=== PATIENT | male | born 1960 | race Caucasian/White ===

== ENCOUNTER 2016-10-02 10:50 | Emergency (ER) | payer MEDICAID ==
[2016-10-02 11:11] VITALS: BMI 29.8
[2016-10-02 11:13] VITALS: RESP 18
--- NOTE | 2016-10-02 12:05 | C.PDOC ---
History Of Present Illness 56 y/o male presents to the ED with complaints of acute on chronic mid lower back pain. Pt taking unknown medication at home for the pain without improvement. Denies applying heat/ice. No recent trauma or strain. Denies weakness, numbness, incontinence or any other complaints. Time Seen by Provider: 10/02/16 11:59 Chief Complaint (Nursing): Back Pain History Per: Patient History/Exam Limitations: no limitations Onset/Duration Of Symptoms: Days Current Symptoms Are (Timing): Still Present Quality Of Discomfort: "Pain" Severity: Moderate Previous Symptoms: Back Pain, Chronic Pain Associated Symptoms: None Recent travel outside of the [place]: No Past Medical History Reviewed: Historical Data, Nursing Documentation, Vital Signs Vital Signs: Last Vital Signs Temp 97.3 F L 10/02/16 13:08 Pulse 71 10/02/16 13:08 Resp 18 10/02/16 13:08 BP 114/71 10/02/16 13:08 Pulse Ox 99 10/02/16 13:32 - Medical History PMH: HTN Family History: States: Unknown Family Hx - Social History Hx Alcohol Use: No Hx Substance Use: No - Immunization History Hx Tetanus Toxoid Vaccination: No Hx Influenza Vaccination: No Hx Pneumococcal Vaccination: No Review Of Systems Except As Marked, All Systems Reviewed And Found Negative. Genitourinary: Negative for: Incontinence Musculoskeletal: Positive for: Back Pain Neurological: Negative for: Weakness, Numbness Physical Exam - Physical Exam Appears: Non-toxic, No Acute Distress, Other (obese) Skin: Warm, Dry, No Rash Head: Atraumatic, Normacephalic Neck: Normal, Normal ROM, Supple Chest: Symmetrical Cardiovascular: Rhythm Regular, No Murmur Respiratory: Normal Breath Sounds, No Rales, No Rhonchi, No Wheezing Back: Vertebral Tenderness (lumbosacral) Neurological/Psych: Oriented x3, Normal Speech, Normal Motor, Normal Sensation ED Course And Treatment O2 Sat by Pulse Oximetry: 99 (room air) Pulse Ox Interpretation: Normal - Other Rad LS spine X-Ray: Interpreted by Me (neg) Medical Decision Making Medical Decision Making: recurrent lumbar strain h/o morbid obesity no acute spinal injury nor warning signs. Disposition Doctor Will See Patient In The: Office Counseled Patient/Family Regarding: Studies Performed, Diagnosis - Disposition Disposition: HOME/ ROUTINE Disposition Time: 14:33 Condition: GOOD - Clinical Impression Clinical Impression: Lumbar sprain - Scribe Statement The provider has reviewed the documentation as recorded by the Maribelibky Mcfarland Provider Attestation: All medical record entries made by the Belkys were at my direction and personally dictated by me. I have reviewed the chart and agree that the record accurately reflects my personal performance of the history, physical exam, medical decision making, and the department course for this patient. I have also personally directed, reviewed, and agree with the discharge instructions and disposition.
[2016-10-02 13:08] VITALS: TEMP 97.3
[2016-10-02 14:38] VITALS: BP 132/78; PULSE 75; O2SAT 98
--- NOTE | 2016-10-02 14:56 | RAD ---
PROCEDURE: Radiographs of the Lumbar Spine. HISTORY: acute on chronic LBP COMPARISON: No prior. FINDINGS: BONES: No acute compression fractures no retropulsed fragments. Small chronic anterior wedge deformities of the L1 and L2 segments felt to be degenerative in origin Vertebral bodies otherwise exhibit relatively normal stature. Vertebral bodies and facets normally aligned. DISC SPACES: Mild multilevel degenerative spondylosis. Changes which most notably affect the L5-S1 level include disc space narrowing, endplate eburnation and anterolateral osteophyte formation. Facet joints are hypertrophic L5-S1 through the L3-L4 levels in decreasing order of severity OTHER FINDINGS: None. IMPRESSION: No acute fractures. Multilevel degenerative spondylosis.
== END 2016-10-02 15:00 | disposition home or self-care (01) ==
LOC: C.ER 10:50
DX: S33.5XXA Sprain of ligaments of lumbar spine, initial encounter (principal); X58.XXXA Exposure to other specified factors, initial encounter
CPT/HCPCS: 72100; 96372; 99284; J1885